=== PATIENT | female | born 1975 | race Caucasian/White ===

== ENCOUNTER → 2024-09-18 | Outpatient (CLI) | payer MEDICAID, SELFPAY ==
--- NOTE | 2024-09-18 15:30 | XR_ITS ---
Examination: MRI lumbar spine without contrast Date and time of exam: September 18, 2024 1546 hours Comparison April 09, 2023 INDICATIONS: Low back pain beginning 30 years ago Technique: Multiple MRI axial and sagittal sections lumbar spine. Sagittal T2-weighted images, TR 3500, TE 118 T1 weighted transverse sections, TR 688 T8.5, T2-weighted sagittal sections T1 weighted sagittal sections TR 621, TE 30 T2 axial sections, TR 4, 190, TE 84. Findings: Mud Grinder film lumbar dextroscoliosis 15 degrees Grade 1 anterolisthesis L4 on L5 Moderate to advanced diffuse lumbar degenerative disc disease, most prominent L3-L4, L4-L5 Lumbar vertebral bodies L5-S1 4 mm central lumbar disc bulge extending to the foraminal regions with mild right L5 ganglionic compression L4-L5 7 mm central right paracentral subarticular disc bulge displacing both L5 nerve roots L3-L4 6 mm left foraminal disc bulge producing mild left L3 ganglionic compression L2-L3 no disc protrusion L1-L2 no disc protrusion IMPRESSION: Moderate to advanced diffuse lumbar degenerative disc disease L5-S1 4 mm central lumbar disc bulge with mild right L5 ganglionic compression L4-L5 7 mm central right paracentral subarticular disc bulge displacing both L5 nerve roots L3-L4 6 mm left foraminal disc bulge producing mild left L3 ganglionic compression
== END | disposition home or self-care (01) ==
PROVIDERS: PCP Nurse Practitioner Family; Referring Provider Nurse Practitioner Family; Visit Provider Nurse Practitioner Family
DX: M51.369 Other intervertebral disc degeneration, lumbar region without mention of lumbar back pain or lower extremity pain (principal); G95.20 Unspecified cord compression; M51.379 Other intervertebral disc degeneration, lumbosacral region without mention of lumbar back pain or lower extremity pain
CPT/HCPCS: 72148

== ENCOUNTER → 2025-03-08 | Outpatient (CLI) | payer MEDICAID, SELFPAY ==
--- NOTE | 2025-03-08 14:15 | XR_ITS ---
Examination: Screening digital mammography, bilateral Computer aided detection 3-D breast Tomosynthesis, bilateral Date and time of exam: March 08, 2025 1406 hours compared to mammograms dating to January 10, 2008 Indication: Screening Technique: Nonmagnified MLO, CC views of the breasts to been obtained, reconstructed from 3-D Tomosynthesis images. R2 computer aided detection program utilized for evaluation of suspicious masses and/or abnormal calcifications. 3-D Tomosynthesis images obtained. Findings: Scattered areas of fibroglandular density. Benign calcifications. No interval suspicious masses Impression: BI-RADS Category 0: Incomplete: Need additional imaging bifurcation Recommend follow-up right breast sonography, given the right breast sonogram report September 05, 2023
== END | disposition home or self-care (01) ==
LOC: CDIM 13:54
DX: Z12.31 Encounter for screening mammogram for malignant neoplasm of breast (principal); R92.8 Other abnormal and inconclusive findings on diagnostic imaging of breast
CPT/HCPCS: 77063; 77067